=== PATIENT | female | born 1965 | race Caucasian/White ===

== ENCOUNTER → 2017-09-23 | Outpatient (CLI) | payer BC ==
--- NOTE | 2017-09-23 16:57 | BD ---
EXAMINATION TYPE: Axial Bone Density DATE OF EXAM: 09/23/2017 COMPARISON: 07.14.2015 CLINICAL HISTORY: 52 YR OLD FEMALE...ICD-10 CODE: M85.80 ODTEOPENIA Height: 63 Weight: 129 FRAX RISK QUESTIONS: 3. Menopause before 45: NO BUT AT AGE 44 Current Tobacco Use: YES RISK FACTORS HISTORY OF: Family History of Osteoporosis: YES, HER MOTHER Active: YES Diet low in dairy products/other sources of calcium: YES, LACTOSE INTOLERANT Postmenopausal woman: YES, AT 44 YRS OLD MEDICATIONS: Additional Medications: HX OF CHEMO, STATINS FOR CHOLESTEROL, VIT D Additional History: HX OF BREAST CANCER, LT EXAM MEASUREMENTS: Bone mineral densitometry was performed using the [employer] System. Bone mineral density as measured about the Lumbar spine is: ----- L1-L4(G/cm2): 0.974 T Score Values are as follows: ----- L1: -2.0 ----- L2: -1.7 ----- L3: -1.4 ----- L4: -1.9 ----- L1-L4: -1.7 Bone mineral density has: Decreased -2.0% since study of: 07.14.2015 Bone mineral density about the R hip (g/cm2): 0.841 Bone mineral density about the L hip (g/cm2): 0.817 T Score values are as follows: -----R Neck: -1.9 -----L Neck: -1.9 -----R Total: -1.3 -----L Total: -1.5 Bone mineral density has: Increased 1.7% since study of: 07.14.2015 FRAX%s: THERE IS A 6.6% CHANCE OF A MAJOR OSTEOPOROTIC FX AND A 1.3% FOR HIP FX.......PROBABILITY OF FX IN 10 YRS TIME IMPRESSION: Osteopenia (T Score between -2.5 and -1). There is slightly increased risk of fracture and the patient may be considered for treatment. Re-Screen 2-5 years. NOTE: T-SCORE=SD OF THE YOUNG ADULT MEAN.
== END | disposition home or self-care (01) ==
LOC: RADBDWWP 07:17
PROVIDERS: ATTEND Obstetrics & Gynecology
DX: M85.80 Other specified disorders of bone density and structure, unspecified site (principal)
CPT/HCPCS: 77080

== ENCOUNTER → 2017-10-05 | Outpatient (CLI) | payer BC ==
--- NOTE | 2017-10-05 08:56 | US ---
EXAMINATION TYPE: US pelvis complete transvag DATE OF EXAM: 10/05/2017 COMPARISON: Prior pelvic ultrasound July 14, 2015. Prior pelvic MRI July 29, 2015. CLINICAL HISTORY: D25.9 Fibroids. assess fibroid size TECHNIQUE: . Transabdominal sonographic images of the pelvis were acquired. Transvaginal sonographi c images were medically necessary to better assess the following anatomy: fibroids and ovaries Date of LMP: 9 years ago EXAM MEASUREMENTS: Uterus: 6.9 x 4.8 x 4.4cm Endometrial Stripe: Distorted Right Ovary: not seen Left Ovary: 1.7 x 1.7 x 1.6cm 1. Uterus: Anteverted multiple fibroid seen, largest on the right = 4.1cm, largest on the left = 4 .2cm, exophytic fibroid on the right = 3.1cm 2. Endometrium: Distorted by fibroid. 3. Right Ovary: not seen due to overlying bowel 4. Left Ovary: wnl 5. Bilateral Adnexa: wnl 6. Posterior cul-de-sac: wnl There is redemonstration of bulky enlarged lobulated multi fibroid uterus. Fibroids are more difficul t to accurately count and crackly size on ultrasound versus MRI due to the heterogeneity and size. IMPRESSION: Fibroid uterus redemonstrated. Interval change is difficult to assess due to bulky contou r, prominent size, and marked heterogeneity. Advise repeat pelvic MRI if this is clinical concern.
== END | disposition home or self-care (01) ==
LOC: RADUSWWP 08:06
PROVIDERS: ATTEND Obstetrics & Gynecology
DX: D25.9 Leiomyoma of uterus, unspecified (principal)
CPT/HCPCS: 76830; 76856

== ENCOUNTER → 2018-10-12 | Day surgery (SDC) | payer BC ==
[2018-10-10 10:38] VITALS: BMI 22.3
[~2018-10-12] MED LIST: LACTATED RINGERS 1,000 ML IV SCH; ONDANSETRON 4 MG/2 ML VIAL IVP ONE; PROPOFOL 10 MG/ML 20 ML VIAL IV ONE
[2018-10-12 08:57] VITALS: TEMP 97.7
--- NOTE | 2018-10-12 09:52 | P.PCN ---
Date of Procedure: 10/12/18 Procedure(s) Performed: BRIEF HISTORY: Patient is a 53-year-old pleasant female, scheduled for an elective colonoscopy as a part of screening for colorectal rectal neoplasia. PROCEDURE PERFORMED: Colonoscopy with snare polypectomy. PREOPERATIVE DIAGNOSIS: Screening for colon cancer. IV sedation per Anesthesia. PROCEDURE: After informed consent was obtained, the patient, was brought into the endoscopy unit. IV sedation was administered by Anesthesia under continuous monitoring. Digital rectal examination was normal. Initially the Olympus CF-160 flexible video colonoscope was then inserted in the rectum, gradually advanced into the cecum without any difficulty. Careful examination was performed as the scope was gradually being withdrawn. Ileocecal valve and the appendiceal orifice were visualized and appeared normal. Prep was excellent. Mucosa of the cecum, appeared normal. In the ascending colon there was a 5 mm sessile polyp that was removed by snare polypectomy. Rest of the ascending colon, transverse colon, descending colon appeared normal. In the sigmoid colon there was another 3 mm sessile polyp that was removed by snare polypectomy. Rest, sigmoid colon, and rectum appeared normal. Retroflexion was performed in the rectum and no lesions were seen. The patient tolerated the procedure well. IMPRESSION: 5 mm ascending colon polyp status post polypectomy 3 mm sessile sigmoid: polyp status post polypectomy RECOMMENDATIONS: Findings of this examination were discussed with the patient as well as a family. She was advised to have a repeat surveillance colonoscopy in 5 years from now based on the biopsy results.
[2018-10-12 10:31] VITALS: BP 117/78; PULSE 58; RESP 18
== END | disposition home or self-care (01) ==
LOC: ORWHC2ENDO 08:18
PROVIDERS: ATTEND Internal Medicine Gastroenterology
DX: Z12.11 Encounter for screening for malignant neoplasm of colon (principal); D12.2 Benign neoplasm of ascending colon; D12.5 Benign neoplasm of sigmoid colon; Z85.3 Personal history of malignant neoplasm of breast; Z88.5 Allergy status to narcotic agent; Z88.0 Allergy status to penicillin; Z88.2 Allergy status to sulfonamides; E78.5 Hyperlipidemia, unspecified; Z87.891 Personal history of nicotine dependence; Z79.899 Other long term (current) drug therapy
CPT/HCPCS: 88305; 45385; J2405; J2704

== ENCOUNTER → 2018-12-09 | Outpatient (CLI) | payer BC ==
--- NOTE | 2018-12-10 13:35 | CT ---
EXAMINATION TYPE: CT chest w con DATE OF EXAM: 12/09/2018 COMPARISON: Chest x-ray 05/20/2015 HISTORY: breast CA CT DLP: 149.6 mGycm Automated exposure control for dose reduction was used. CONTRAST: CT scan of the chest is performed with IV Contrast, patient injected with 100 mL of Isovue 300. FINDINGS: LUNGS: The lungs are grossly clear, there is no concerning parenchymal mass or nodule identified. T here is no pleural effusion or pneumothorax seen. The tracheobronchial tree is patent. MEDIASTINUM: There are no greater than 1 cm hilar or mediastinal lymph nodes. No pericardial effusi on is seen. AORTA: No additional significant abnormality is seen. OTHER: Bilateral breast prostheses are present. Multiple low attenuation foci are present within the liver. At least one lesion adjacent to the left portal vein on axial image #60 within the lateral se gment left lobe does not show simple cyst Hounsfield unit measurement.. IMPRESSION: Multiple low attenuation foci within the liver as described, there may be hepatic cysts however question soft tissue attenuation left lobe lesion, consider ultrasound correlation, MRI may b e of increased sensitivity and specificity.
== END | disposition home or self-care (01) ==
LOC: RADCTMAIN 08:47
PROVIDERS: ATTEND Internal Medicine Hematology & Oncology
DX: C50.412 Malignant neoplasm of upper-outer quadrant of left female breast (principal); Z88.0 Allergy status to penicillin; Z88.2 Allergy status to sulfonamides
CPT/HCPCS: 71260; Q9967

== ENCOUNTER → 2019-07-23 | Outpatient (CLI) | payer OTHER ==
--- NOTE | 2019-07-23 10:49 | US ---
EXAMINATION TYPE: US liver DATE OF EXAM: 07/23/2019 COMPARISON: Correlation CT chest 12/09/2018 CLINICAL HISTORY: 53-year-old female R93.89 Abnormal findings on diagnostic imaging. Follow-up to CT scan TECHNIQUE: Multiple sonographic images of the right upper quadrant are obtained. FINDINGS: EXAM MEASUREMENTS: Liver Length: 14.1 cm Gallbladder Wall: 2 mm CBD: 3 mm Right Kidney: 10.4 cm Pancreas: No gross abnormality. Liver: multiple cysts are present, largest measuring 2.2 x 1.2 x .4 cm. Gallbladder: No abnormal distention, wall thickening, pericholecystic fluid, or shadowing calculi. Evidence for sonographic Schmitz's sign: No CBD: wnl Right Kidney: No hydronephrosis IMPRESSION: Multiple hepatic cysts, largest measuring 2.2 cm. No suspicious solid lesion is seen by ultrasound. A s we are unable to clearly determine which of these corresponds to the questioned left hepatic lobe l esion on the 12/09/2018 CT, 3 month follow-up contrast enhanced CT of the abdomen is recommended to e nsure stability of the previously seen lesions.
== END | disposition home or self-care (01) ==
LOC: RADUSWWP 09:23
PROVIDERS: ATTEND Internal Medicine Hematology & Oncology
DX: K76.89 Other specified diseases of liver (principal); Z88.0 Allergy status to penicillin; Z88.2 Allergy status to sulfonamides
CPT/HCPCS: 76705

== ENCOUNTER → 2020-10-13 | Outpatient (CLI) | payer OTHER ==
--- NOTE | 2020-10-13 12:29 | BD ---
EXAMINATION TYPE: Axial Bone Density DATE OF EXAM: 10/13/2020 COMPARISON: 09.23.2017 CLINICAL HISTORY: 55 YR OLD FEMALE.....ICD-10 CODE: M85.88 OTHER DISORDER OF BD Height: 63 Weight: 137 FRAX RISK QUESTIONS: Family History (Parent hip fracture): YES RISK FACTORS HISTORY OF: Family History of Osteoporosis: YES, MOTHER Diet low in dairy products/other sources of calcium: YES Postmenopausal woman: YES, AT ABOUT AGE 51 YRS OLD Hyperparathyroidism: NO Adrenal Insufficiency: NO MEDICATIONS: Additional Medications: HX OF CHEMO, FOR BREAST CANCER, LT, CHOLESTEROL MEDS, VIT D, Additional History: HX OF LT BREAST CA, CHOLESTEROL EXAM MEASUREMENTS: Bone mineral densitometry was performed using the [employer] System. Bone mineral density as measured about the Lumbar spine is: ----- L1-L4(G/cm2): 0.953 T Score Values are as follows: ----- L1: -1.9 ----- L2: -1.7 ----- L3: -2.1 ----- L4: -2.0 ----- L1-L4: -1.9 Bone mineral density has: Decreased -2.8% since study of: 09.23.2017 Bone mineral density about the R hip (g/cm2): 0.815 Bone mineral density about the L hip (g/cm2): 0.805 T Score values are as follows: -----R Neck: -1.8 -----L Neck: -1.8 -----R Total: -1.5 -----L Total: -1.6 Bone mineral density has: Decreased -2.3% since study of: 09.23.2017 FRAX%s: THERE IS A 15.0% CHANCE FOR A MAJOR OSTEOPOROTIC FX AND A 1.5% FOR HIP......PROBABILITY F OR FX IN 10 YRS TIME IMPRESSION: Osteopenia NOTE: T-SCORE=SD OF THE YOUNG ADULT MEAN.
== END | disposition home or self-care (01) ==
LOC: RADBDWWP 09:15
PROVIDERS: ATTEND Obstetrics & Gynecology
DX: M85.89 Other specified disorders of bone density and structure, multiple sites (principal); Z85.3 Personal history of malignant neoplasm of breast
CPT/HCPCS: 77080